=== PATIENT | male | born 1940 | race Caucasian/White ===

== ENCOUNTER → 2019-12-14 14:37 | Outpatient (BNVA) | payer MEDICARE, OTHER, SELFPAY | PROVIDERS: Family Provider Family Medicine; PCP Nurse Practitioner Family; Referring Provider Nurse Practitioner Family; Visit Provider Urology | DX: R31.0 Gross hematuria (principal); N40.0 Benign prostatic hyperplasia without lower urinary tract symptoms; N40.1 Benign prostatic hyperplasia with lower urinary tract symptoms; R97.20 Elevated prostate specific antigen [PSA] | CPT/HCPCS: 81001 ==

== ENCOUNTER 2020-05-14 09:17 | Outpatient (CLI) | payer MEDICARE, OTHER, SELFPAY ==
--- NOTE | 2020-05-14 09:24 | XR_ITS ---
WS: [id number] WRIST LEFT TECHNIQUE: 2 views of the left wrist CLINICAL INFORMATION: INJURY OF LEFT WRIST COMPARISON: None. FINDINGS: Mild narrowing radiocarpal joint. Scaphoid is normal in appearance. No evidence of radiocarpal disloc ation. Distal radius and ulna are normal in appearance. Normal visualized carpal bones. XR/XR wrist LT 2V [id number] IMPRESSION: No visualized fractures.
--- NOTE | 2020-05-14 09:24 | XR_ITS ---
WS: [id number] TECHNIQUE: 2 views of the right hand CLINICAL INFORMATION: INJURY OF LEFT WRIST COMPARISON: None. FINDINGS: Mild narrowing of the radiocarpal joint. Scaphoid and lunate appear normal. Normal scapholunate inter daniel. Metacarpals are normal in appearance. Moderate PIP and DIP joint narrowing with periarticular os teophytes. XR/XR hand RT 2V [id number] IMPRESSION: No acute fractures
== END 2020-05-14 09:18 | disposition home or self-care (01) ==
LOC: RADWPI 09:20
PROVIDERS: PCP Nurse Practitioner Family; Visit Provider Nurse Practitioner Family
DX: S69.92XA Unspecified injury of left wrist, hand and finger(s), initial encounter (principal); X58.XXXA Exposure to other specified factors, initial encounter
CPT/HCPCS: 73100; 73120

== ENCOUNTER → 2020-12-12 10:15 | Outpatient (BNVA) | payer MEDICARE, SELFPAY | PROVIDERS: PCP Nurse Practitioner Family; Visit Provider Urology | DX: R97.20 Elevated prostate specific antigen [PSA] (principal); N40.1 Benign prostatic hyperplasia with lower urinary tract symptoms | CPT/HCPCS: 81003; G0103 ==

== ENCOUNTER → 2022-04-28 08:33 | Outpatient (BNVA) | payer MEDICARE, SELFPAY | PROVIDERS: PCP Nurse Practitioner Family; Visit Provider Podiatrist Foot & Ankle Surgery | DX: Z79.84 Long term (current) use of oral hypoglycemic drugs (principal); E11.42 Type 2 diabetes mellitus with diabetic polyneuropathy; L60.3 Nail dystrophy; M20.41 Other hammer toe(s) (acquired), right foot; M20.42 Other hammer toe(s) (acquired), left foot | CPT/HCPCS: 99214 ==

== ENCOUNTER → 2022-08-25 08:00 | Outpatient (BNVA) | payer MEDICARE, OTHER, SELFPAY | PROVIDERS: PCP Internal Medicine; Visit Provider Podiatrist Foot & Ankle Surgery | DX: E11.42 Type 2 diabetes mellitus with diabetic polyneuropathy (principal); L60.3 Nail dystrophy; M20.41 Other hammer toe(s) (acquired), right foot; M20.42 Other hammer toe(s) (acquired), left foot | CPT/HCPCS: 11721 ==

== ENCOUNTER → 2022-12-01 07:48 | Outpatient (BNVA) | payer MEDICARE, OTHER, SELFPAY | PROVIDERS: PCP Internal Medicine; Visit Provider Podiatrist Foot & Ankle Surgery | DX: E11.42 Type 2 diabetes mellitus with diabetic polyneuropathy (principal); L60.3 Nail dystrophy; M20.41 Other hammer toe(s) (acquired), right foot; M20.42 Other hammer toe(s) (acquired), left foot; Z79.84 Long term (current) use of oral hypoglycemic drugs | CPT/HCPCS: 11721 ==

== ENCOUNTER → 2023-03-02 07:29 | Outpatient (BNVA) | payer MEDICARE, OTHER, SELFPAY | PROVIDERS: PCP Internal Medicine; Visit Provider Podiatrist Foot & Ankle Surgery | DX: E11.42 Type 2 diabetes mellitus with diabetic polyneuropathy (principal); L60.3 Nail dystrophy; M20.41 Other hammer toe(s) (acquired), right foot; M20.42 Other hammer toe(s) (acquired), left foot; Z79.84 Long term (current) use of oral hypoglycemic drugs | CPT/HCPCS: 11721 ==

== ENCOUNTER → 2023-06-30 07:50 | Outpatient (BNVA) | payer MEDICARE, OTHER, SELFPAY | PROVIDERS: PCP Internal Medicine; Visit Provider Podiatrist Foot & Ankle Surgery | DX: E11.42 Type 2 diabetes mellitus with diabetic polyneuropathy (principal); L60.3 Nail dystrophy; Z79.84 Long term (current) use of oral hypoglycemic drugs | CPT/HCPCS: 11721 ==

== ENCOUNTER 2023-07-28 15:17 | Emergency (ER) | payer MEDICARE, OTHER, SELFPAY ==
[2023-07-28] VITALS (8 sets, daily range): BP systolic 163–178; BP diastolic 78–88; PULSE 56–87; RESP 16–24; TEMP 36.7; O2SAT 93–99
--- NOTE | 2023-07-28 15:29 | W.ED.CHESTPA ---
HPI - Chest Pain General: Chief Complaint: Abdominal Pain Stated Complaint: left side pain Time Seen by Provider: 07/28/23 15:29 [facility] ED PFSH: Medical History Elevated PSA BPH NOS w ur obs/LUTS Enlarged prostate Surgical History H/O hernia repair BILATERAL INGUINAL HERNIA H/O circumcision Total knee replacement status LEFT KNEE x 2 H/O knee surgery LEFT Family History Mother , AT AGE 78 Cancer Lung Diabetes Father , AT AGE 85 Diabetes Cancer PANCREAS Social History Smoking and tobacco/nicotine status: never used tobacco/nicotine Alcohol intake: never Substance/Drug Use: never Marital status: Current occupational status: retired Course Vital Signs: Vital signs: Vital Signs Temperature 98.0 F 07/28/23 15:20 Pulse Rate 61 07/28/23 15:20 Respiratory Rate 16 07/28/23 15:20 Blood Pressure 172/78 07/28/23 15:20 Pulse Oximetry 99 07/28/23 15:20 Oxygen Delivery Me thod Room Air 07/28/23 15:20 Discharge Plan Discharge Condition: Stable Prescriptions: No Action (DME) Diabetic shoes with 3 inserts See Rx Instructions .Route .MEDSUPPLY Qty: 1 0RF Rx Instructions: As directed aspirin [Adult Aspirin Regimen] 81 mg tablet,delayed release (DR/EC) 81 mg PO DAILY tamsulosin 0.4 mg capsule 0.4 mg PO DAILY mecobalamin (vitamin B12) 1,000 mcg tablet,chewable 500 mcg PO DAILY cetirizine 10 mg tablet 5 mg PO DAILY PRN finasteride 5 mg tablet 5 mg PO DAILY metformin 500 mg tablet 1,000 mg PO BID lisinopril 2.5 mg tablet 2.5 mg PO BID (DME) Diabetic Shoes with 3 sets of inserts See Rx Instructions .Route .MEDSUPPLY Qty: 1 0RF Rx Instructions: As directed by HOME Ozempic 0.25 mg or 0.5 mg(2 mg/1.5 mL) pen injector 0.25 mg SUBCUT .weekly atorvastatin 40 mg tablet 40 mg PO DAILY Qty: 90 3RF (DME) OneTouch Ultra Test Strip See Rx Instructions .Route Qty: 100 3RF Rx Instructions: Test once a day. azelastine-fluticasone 137-50 mcg/spray spray,non-aerosol 1 spray intranasal BID Qty: 23 0RF Rx Instructions: administer into each nostril (DME) lancets [OneTouch Delica Plus Lancet] 33 gauge misc See Rx Instructions .ROUTE .COMPLEX Qty: 100 4RF Dose Instruction: USE TO TEST ONCE DAILY Rx Instructions: USE TO TEST ONCE DAILY Referrals: Lázaro Mccarty DO [Primary Care Provider] - Coding Level of Care Code ED Show Card Writer for Jackie Janesn
--- NOTE | 2023-07-28 15:36 | ECG_ITS ---
[facility] Test Date: 2023-07-28 Pat Name: Eduin Elena Department: Room: Gender: Male Stenographer Secretary: : 1940 Requested By: Ananda Cagle Order Number: [id number] Leidy MD: Victorino Rico M.D. Measurements Intervals Post Rate: 52 P: 261 NE: 114 QRS: 19 QRSD: 96 T: 36 QT: 399 QTc: 373 Interpretive Statements JUNCTIONAL BRADYCARDIA SEPTAL MYOCARDIAL INFARCTION , AGE INDETERMINATE No previous ECG available for comparison Electronically Signed On 07-29-2023 14:47:09 BEEF SELECTOR by Victorino Rico M.D. [id number]
--- NOTE | 2023-07-28 15:37 | XR_ITS ---
WS: [id number] Portable AP upright chest, 07/28/2023 Clinical Data: dyspnea/cough Comparison: Two-view chest, 09/15/2017 Findings: No nodules, masses or effusions are seen. The heart is normal. The pulmonary vascularity is not increased. No pneumonia or pneumothorax is seen. The aortic arch and descending thoracic aorta a re minimally tortuous. There are monitor leads on the chest wall. Impression: Atherosclerosis.
[2023-07-28 15:49] LABS: Basophils % 0.3 %; Eosinophils # 0.1 10^3/uL (0.0-0.8); Hematocrit 40.8 % (37-53); Lymphocytes # 3.5 10^3/uL (0.8-4.8); Lymphocytes % 40.5 %; Mean Corpuscular HGB Conc 32.6 g/dL (30-55); Mean Corpuscular Hemoglobin 30.7 pg (27-33); Mean Corpuscular Volume 94.2 fl (82-101); Monocytes % 11.9 %; Neutrophils # 3.96 10^3/uL (1.8-7.7); Neutrophils % 46.1 %; Nucleated Red Blood Cells % 0 %; Platelet Count 250 10^3/cmm (157-399); Red Blood Count 4.33 10^6/uL (3.85-5.65); Red Cell Distribution Width 12.6 % (12.1-15.1); White Blood Count 8.62 10^3/uL (3.29-11.43)
--- NOTE | 2023-07-28 15:54 | ED_ITS ---
HPI - Abdominal Pain 2 General: Chief Complaint: Abdominal Pain Stated Complaint: left side pain Time Seen by Provider: 07/28/23 15:29 Source: patient Mode of arrival: ambulatory History of Present Illness: 83-year-old male presents emergency room with complaints of left lower quadrant left flank pain that began earlier today no chest pain or shortness of breath. He denies dysuria urgency frequency or hematuria no vomiting or diarrhea but has been very nauseous. No history of diverticulitis. MD elicited complaint: abdominal pain Onset (ago): hour(s) Pain Consistency: constant Location: LLQ and L flank Severity: moderate Quality: sharp Exacerbating factors: nothing Relieving factors: nothing Associated Symptoms: Reports GI cramping and nausea; Denies anorexia, belching, bloating, change in bowel habits, change in stool character, chills, coffee ground emesis, constipation, diarrhea, dyspepsia, dysuria, excessive flatus, fever(s), heartburn, hematochezia, hematuria, hematemesis, fecal incontinence, loose stools, melena, poor appetite, syncope and vomiting Review of Systems 2 Const: Denies: fever(s) or chills Card: Denies: chest pain or syncope Resp: Denies: dyspnea GI: Reports: abdominal pain, nausea and GI cramping; Denies: vomiting, hematemesis, coffee ground emesis, heartburn, diarrhea, constipation, bloating, belching, excessive flatus, fecal incontinence, change in bowel habits, change in stool character, hematochezia or melena : Reports: flank pain; Denies: dysuria, urinary frequency, urinary urgency or hematuria Musc: Denies: neck pain or back pain Skin/Breast: Denies: rash PFSH ED 2 PFSH: Medical History (Updated 07/28/23 @ 17:28 by Ananda Peralta DO) Elevated PSA BPH NOS w ur obs/LUTS Enlarged prostate Surgical History H/O hernia repair BILATERAL INGUINAL HERNIA H/O circumcision Total knee replacement status LEFT KNEE x 2 H/O knee surgery LEFT Family History Mother , AT AGE 78 Cancer Lung Diabetes Father , AT AGE 85 Diabetes Cancer PANCREAS Social History Smoking and tobacco/nicotine status: never used tobacco/nicotine Alcohol intake: never Substance/Drug Use: never Marital status: Current occupational status: retired Physical Exam 2 Const: GENERAL APPEARANCE: cooperative and comfortable O RIENTATION/CONSCIOUSNESS: Yes awake, Yes oriented to person, Yes oriented to place and Yes oriented to time HENMT: COMMON NORMALS: normocephalic, atraumatic and hearing grossly normal bilaterally HEAD & SCALP: normocephalic and atraumatic Resp: COMMON NORMALS: normal respiratory effort, No retractions, No use of accessory muscles and clear to auscultation bilaterally AUSCULTATION: clear to auscultation bilaterally Cardio: COMMON NORMALS: regular rate, regular rhythm and No murmurs present (Cardio) RATE: regular rate RHYTHM: regular rhythm GI: COMMON NORMALS: No hepatosplenomegaly present AUSCULTATION: Yes normoactive bowel sounds PALPATION: Yes Tenderness to palpation present (GI) Details: LLQ, No Guarding due to palpation present (GI) and Yes No hepatosplenomegaly present Extremity: COMMON NORMALS: normal to inspection, capillary refill normal, no clubbing, cyanosis or edema, no calf tenderness and no pedal edema Neuro: SENSORIUM/ORIENTATION: Yes oriented to person, Yes oriented to place and Yes oriented to time Skin: COMMON NORMALS: no rashes or lesions noted GENERAL SKIN EXAM: no rashes or lesions noted Course 2 Vital Signs: Vital signs: Vital Signs Temperature 98.0 F 07/28/23 15:20 Pulse Rate 78 07/28/23 17:00 Respiratory Rate 18 07/28/23 17:42 Blood Pressure 170/86 07/28/23 17:00 Pulse Oximetry 94 07/28/23 17:42 Oxygen Delivery Me thod Room Air 07/28/23 15:20 MDM - Abdominal Pain Medical Decision Making CT shows left nephrolithiasis at the UVJ. Discharge home strain urine increase tamsulosin 1. Hydrocodone for pain antiemetics as needed. Strain urine and follow-up with urology Medical Records I reviewed the patient's medical records. Lab Data I reviewed the patient's lab results. 07/28/23 15:35 07/28/23 15:35 Labs/Radiology: Radiology Impressions Abdomen/Pelvis CT 07/28/23 16:42 IMPRESSION: 1. 3 mm obstructive stone in the distal left ureter at the ureterovesical junction producing mild hydronephrosis, renal enlargement and perinephric edema. 2. Solitary nonobstructive stone in the left kidney. No stones on the right. 3. Diffuse high attenuation of the liver parenchyma may be related to abnormal iron deposition or amiodarone therapy. 4. Incidental findings above. Laboratory Results WBC 8.62 10^3/uL (3.29-11.43) 07/28/23 15:35 RBC 4.33 10^6/uL (3.85-5.65) 07/28/23 15:35 Hgb 13.30 g/dL (11.27-16.99) 07/28/23 15:35 Hct 40.8 % (37-53) 07/28/23 15:35 MCV 94.2 fl (82-101) 07/28/23 15:35 MCH 30.7 pg (27-33) 07/28/23 15:35 MCHC 32.6 g/dL (30-55) 07/28/23 15:35 RDW 12.6 % (12.1-15.1) 07/28/23 15:35 Plt Count 250 10^3/cmm (157-399) 07/28/23 15:35 MPV 10.0 fL (7.4-10.4) 07/28/23 15:35 Neut % (Auto) 46.1 % 07/28/23 15:35 Lymph % (Auto) 40.5 % 07/28/23 15:35 R[place]els % (Auto) 11.9 % 07/28/23 15:35 Eos % (Auto) 1.0 % 07/28/23 15:35 Baso % (Auto) 0.3 % 07/28/23 15:35 Neut # (Auto) 3.96 10^3/uL (1.8-7.7) 07/28/23 15:35 Lymph # (Auto) 3.5 10^3/uL (0.8-4.8) 07/28/23 15:35 R[place]els # (Auto) 1.0 10^3/uL (0.2-0.9) H 07/28/23 15:35 Eos # (Auto) 0.1 10^3/uL (0.0-0.8) 07/28/23 15:35 Baso # (Auto) 0.0 10^3/uL (0.0-0.1) 07/28/23 15:35 Nucleated RBC % (auto) 0 % 07/28/23 15:35 Nucleated RBCs # 0.0 /100WBC 07/28/23 15:35 Sodium 141 mmol/L (136-145) 07/28/23 15:35 Potassium 3.8 mmol/L (3.5-5.1) 07/28/23 15:35 Chloride 103 mmol/L (98-107) 07/28/23 15:35 Carbon Dioxide 26 mmol/L (22-29) 07/28/23 15:35 Anion Gap 15.8 (5-19) 07/28/23 15:35 BUN 25 mg/dL (8-23) H 07/28/23 15:35 Creatinine 0.8 mg/dL (0.7-1.2) 07/28/23 15:35 GFR Calculation Not Reportable 07/28/23 15:35 Glucose 178 mg/dL (65-115) H 07/28/23 15:35 Calculated Osmolality 301 mOsm/kg (285-295) H 07/28/23 15:35 Calcium 9.7 mg/dL (8.5-10.5) 07/28/23 15:35 Magnesium 1.8 mg/dL (1.7-2.3) 07/28/23 15:35 Total Bilirubin 0.5 mg/dL (0.15-1.2) 07/28/23 15:35 AST 16 U/L (0-40) 07/28/23 15:35 ALT 21 U/L (0-41) 07/28/23 15:35 Alkaline Phosphatase 100 U/L (40-130) 07/28/23 15:35 Troponin T Baseline 16 ng/L (0-15) H 07/28/23 15:35 Total Protein 6.7 g/dL (6.6-8.7) 07/28/23 15:35 Albumin 4.3 g/dL (3.5-5.2) 07/28/23 15:35 Globulin 2.4 g/dL (1.3-4.6) 07/28/23 15:35 Lipase 45 U/L (13-60) 07/28/23 15:35 Urine Color Yellow (Yellow) 07/28/23 15:48 Urine Appearance Clear (CLEAR) 07/28/23 15:48 Urine pH 5 (5-7) 07/28/23 15:48 Ur Specific [place] 1.015 (1.005-1.030) 07/28/23 15:48 Urine Protein Neg (Negative) 07/28/23 15:48 Urine Glucose (UA) 4+ (Normal) H 07/28/23 15:48 Urine Ketones Negative (Negative) 07/28/23 15:48 Urine Blood 3+ (Negative) H 07/28/23 15:48 Urine Nitrate Negative (Negative) 07/28/23 15:48 Urine Bilirubin Neg (Negative) 07/28/23 15:48 Urine Urobilinogen Norm mg/dL (Negative) 07/28/23 15:48 Ur Leukocyte Esterase Negative (Negative) 07/28/23 15:48 Urine RBC 40-50 /hpf (0-2) H 07/28/23 15:48 Urine WBC 0-4 /hpf (0-5) H 07/28/23 15:48 Ur Squamous Epith Cells None /hpf (0-5) 07/28/23 15:48 Ur Transition Epith Cell Rare /hpf 07/28/23 15:48 Amorphous Sediment Not Reportable 07/28/23 15:48 Urine Bacteria None /hpf (NONE) 07/28/23 15:48 Urine Mucus 1+ /hpf 07/28/23 15:48 All radiology interpretation(s) finalized by discharge Discharge Plan Discharge Patient Disposition: Home Clinical Impression: Calculus of kidney Condition: Stable Prescriptions: New hydrocodone-acetaminophen 5-325 mg tablet 1 tab PO Q6H PRN (Reason: pain) Qty: 20 0RF ondansetron HCl 4 mg tablet 4 mg PO Q6H PRN (Reason: nausea and vomiting) Qty: 20 0RF tamsulosin 0.4 mg capsule 0.8 mg PO DAILY Qty: 20 0RF No Action (DME) Diabetic shoes with 3 inserts See Rx Instructions .Route .MEDSUPPLY Qty: 1 0RF Rx Instructions: As directed aspirin [Adult Aspirin Regimen] 81 mg tablet,delayed release (DR/EC) 81 mg PO QAM tamsulosin 0.4 mg capsule 0.4 mg PO QPM mecobalamin (vitamin B12) 1,000 mcg tablet,chewable 500 mcg PO QAM finasteride 5 mg tablet 5 mg PO QPM lisinopril 2.5 mg tablet 2.5 mg PO BID (DME) Diabetic Shoes with 3 sets of inserts See Rx Instructions .Route .MEDSUPPLY Qty: 1 0RF Rx Instructions: As directed by HOME (DME) OneTouch Ultra Test Strip See Rx Instructions .Route Qty: 100 3RF Rx Instructions: Test once a day. (DME) lancets [OneTouch Delica Plus Lancet] 33 gauge misc See Rx Instructions .ROUTE .COMPLEX Qty: 100 4RF Dose Instruction: USE TO TEST ONCE DAILY Rx Instructions: USE TO TEST ONCE DAILY metformin 1,000 mg tablet 1,000 mg PO BID atorvastatin 40 mg tablet 40 mg PO QAM ferrous sulfate 27 mg iron Tablet 27 mg PO QAM Discharge Orders: Discharge ED (Routine); Ordered 07/28/23 Ordered By: Ananda Peralta Referrals: Lázaro Mccarty, [Primary Care Provider] - Discharge Diet: Usual diet Discharge Activity: Resume usual activity Patient Instructions: Kidney Stones (ED), How to Strain Your Urine (ED), Opioid Safety, Pain Management Activity Restrictions/Additional Instructions: Thank you for choosing [facility] for your healthcare needs today. Please realize this is an emergency room and that we are providing you with a medical screening exam and this may not be complete and all inclusive of all the testing and or work up that you may need to determine your ailment or severity of your illness. It is very important that you follow up as instructed or that you return to the Emergency Department should you have concerns or if your condition changes or worsens in any way. Coding Level of Care Code ED Materials Research Engineer for Jackie Jansen
[2023-07-28] MEDS: ondansetron 2 mg/ML SDV 2 mL 4 MG IVP (16:08)
[2023-07-28] MEDS: morphine 4 mg/mL SDV 1 mL IVP (16:08)
--- NOTE | 2023-07-28 16:12 | PC.NURSE ---
pt had morphine listed as allergy, when asked what reaction pt has he stated nausea. pt was educated on allergy and side effect and agreed to take morphine for pain. approved med administration.
[2023-07-28 16:14] LABS: Alanine Aminotransferase 21 U/L (0-41); Albumin Level 4.3 g/dL (3.5-5.2); Alkaline Phosphatase 100 U/L (40-130); Anion Gap 15.8 (5-19); Aspartate Amino Transferase 16 U/L (0-40); Blood Urea Nitrogen 25 mg/dL (8-23); Calcium 9.7 mg/dL (8.5-10.5); Carbon Dioxide 26 mmol/L (22-29); Chloride 103 mmol/L (98-107); Creatinine Clr Calc Pharmacy 77.5006; Globulin 2.4 g/dL (1.3-4.6); Glucose 178 mg/dL (65-115); Lipase 45 U/L (13-60); Magnesium 1.8 mg/dL (1.7-2.3); Osmolality Calculated 301 mOsm/kg (285-295); Potassium 3.8 mmol/L (3.5-5.1); Sodium 141 mmol/L (136-145); Total Bilirubin 0.5 mg/dL (0.15-1.2); Total Protein 6.7 g/dL (6.6-8.7)
[2023-07-28 16:19] LABS: Glucose Urine UA 4+ (Normal); Protein Urine Neg (Negative); Specific Gravity, Urine 1.015 (1.005-1.030); Urine Appearance Clear (CLEAR); Urine Color Yellow (Yellow); pH Urine 5 (5-7)
[2023-07-28 16:19] LABS: Troponin(5th) Baseline 16 ng/L (0-15)
[2023-07-28 16:20] LABS: Add Urine Microscopic? YES; Bilirubin Urine Neg (Negative); Blood Urine 3+ (Negative); Ketones Urine Negative (Negative); Leukocyte Esterase Urine Negative (Negative); Nitrate Urine Negative (Negative); Urobilinogen Urine Norm (Negative)
[2023-07-28 16:23] LABS: Add Urine Culture? Yes; Mucus Urine 1+ /hpf; RBC Urine 40-50 /hpf (0-2); Transitional Epi Cells Urine RARE /hpf; WBC Urine 0-4 /hpf (0-5)
--- NOTE | 2023-07-28 16:42 | CTR_ITS ---
PROCEDURE INFORMATION: Exam: CT Abdomen And Pelvis Without Contrast Exam date and time: 07/28/2023 5:14 PM Age: 83 years old Clinical indication: Abdominal pain; Flank; Left; Prior surgery; Surgery date: 6+ months; Surgery type: Hernia, coreen; Additional info: Flank pain TECHNIQUE: Imaging protocol: Computed tomography of the abdomen and pelvis without contrast. Radiation optimization: All CT scans at this facility use at least one of these dose optimization techniques: automated exposure control; mA and/or kV adjustment per patient size (includes targeted exams where dose is matched to clinical indication); or iterative reconstruction. COMPARISON: CR XR chest 1V portable [id number] 07/28/2023 3:39 PM RADIATION DOSE METRICS: Total DLP (mGy-cm): 493 FINDINGS: Lungs: There is subsegmental atelectasis in the left lung. Diaphragm: There is a small sliding-type hiatal hernia. Liver: There is diffuse high attenuation of the liver parenchyma. No liver mass. Gallbladder and bile ducts: The gallbladder is normal. There is no biliary dilation. Pancreas: The pancreas is unremarkable. Spleen: The spleen is unremarkable. Adrenal glands: The adrenal glands are hypertrophic bilaterally. Kidneys and ureters: There is a 3 mm obstructive stone at the left ureterovesical junction. Mild left hydronephrosis and hydroureter. Solitary 6 mm nonobstructive stone in the lower pole collecting system on the left. Asymmetric left renal enlargement and perinephric fat stranding. The right kidney and ureter are unremarkable. Stomach and bowel: The stomach is nondistended, limiting assessment of wall thickness. The small bowel is nondilated. The colon is mildly stool distended from the cecum to the descending colon. The descending colon contains stool and is nondistended. The sigmoid contains stool and is nondistended. There are a few noninflamed descending and proximal sigmoid diverticula. There is no sign of diverticulitis. Appendix: The appendix is normal. Intraperitoneal space: There is no free air or significant intraperitoneal free fluid. Vasculature: There is moderate aortic atherosclerotic disease. Marked calcific plaque in the right common femoral artery with probable hemodynamically significant stenosis. Lymph nodes: There is no lymphadenopathy in the retroperitoneum, mesentery, pelvis or inguinal regions. Urinary bladder: The urinary bladder is distended and thin walled. Reproductive: There is nonspecific moderate enlargement of the prostate gland. Bones/joints: There is moderate degenerative disease in the lumbar spine. There is mild degenerative disease at the left hip. There is moderate degenerative disease of the right hip. The bony pelvis is intact. Soft tissues: There is a small fat containing umbilical hernia. There is a small fat containing left inguinal hernia. CT/CT kidney stone [id number] IMPRESSION: 1. 3 mm obstructive stone in the distal left ureter at the ureterovesical junction producing mild hydronephrosis, renal enlargement and perinephric edema. 2. Solitary nonobstructive stone in the left kidney. No stones on the right. 3. Diffuse high attenuation of the liver parenchyma may be related to abnormal iron deposition or amiodarone therapy. 4. Incidental findings above.
[2023-07-28] MEDS: morphine 4 mg/mL SDV 1 mL 2 MG IVP (17:42)
[2023-07-28 18:35] LABS: Troponin 5 2HR 16.21 ng/L (0-15); Troponin 5 2HR Delta 0.21 ABS# (0-10)
--- NOTE | 2023-07-29 08:28 | DCPLANNER ---
Addendum entered by Hilda Jensen 07/29/23 08:49: I faxed this patients chart to [facility] on 07/29/23 at 0828. This clinic should contact patient for appt. Fax number sent to is: [phone]. Original Note: I called patient on 07/29/23 at 0824 to ask patient where he would like his urology referral to be sent. He requested [facility] [place].
== END 2023-07-28 18:39 | disposition home or self-care (01) ==
PROVIDERS: Emergency Provider Family Medicine; PCP Electrodiagnostic Medicine
DX: N13.2 Hydronephrosis with renal and ureteral calculous obstruction (principal); Z79.82 Long term (current) use of aspirin; Z79.84 Long term (current) use of oral hypoglycemic drugs
CPT/HCPCS: 36415; 71045; 74176; 80053; 81001; 83690; 83735; 84484; 85025; 87086; 93005; 96374; 96375; 96376; 99285; J2270; J2405

== ENCOUNTER → 2023-09-28 07:56 | Outpatient (BNVA) | payer MEDICARE, OTHER, SELFPAY | PROVIDERS: PCP Electrodiagnostic Medicine; Visit Provider Podiatrist Foot & Ankle Surgery | DX: E11.42 Type 2 diabetes mellitus with diabetic polyneuropathy (principal); L60.3 Nail dystrophy; I73.9 Peripheral vascular disease, unspecified | CPT/HCPCS: 11721 ==

== ENCOUNTER → 2023-12-28 07:55 | Outpatient (BNVA) | payer MEDICARE, OTHER, SELFPAY | PROVIDERS: PCP Electrodiagnostic Medicine; Visit Provider Podiatrist Foot & Ankle Surgery | DX: E11.42 Type 2 diabetes mellitus with diabetic polyneuropathy (principal); L60.3 Nail dystrophy; I73.9 Peripheral vascular disease, unspecified; Z79.84 Long term (current) use of oral hypoglycemic drugs | CPT/HCPCS: 11721 ==

== ENCOUNTER → 2024-04-18 10:30 | Outpatient (BNVA) | payer MEDICARE, OTHER, SELFPAY | PROVIDERS: PCP Electrodiagnostic Medicine; Visit Provider Podiatrist Foot & Ankle Surgery | DX: E11.42 Type 2 diabetes mellitus with diabetic polyneuropathy (principal); L60.3 Nail dystrophy; I73.9 Peripheral vascular disease, unspecified; Z79.84 Long term (current) use of oral hypoglycemic drugs | CPT/HCPCS: 11721 ==

== ENCOUNTER → 2024-07-18 07:01 | Outpatient (BNVA) | payer MEDICARE, OTHER, SELFPAY | PROVIDERS: PCP Electrodiagnostic Medicine; Visit Provider Podiatrist Foot & Ankle Surgery | DX: E11.42 Type 2 diabetes mellitus with diabetic polyneuropathy (principal); L60.3 Nail dystrophy; I73.9 Peripheral vascular disease, unspecified; Z79.84 Long term (current) use of oral hypoglycemic drugs | CPT/HCPCS: 11721; 99213 ==

== ENCOUNTER → 2024-10-24 07:27 | Outpatient (BNVA) | payer MEDICARE, OTHER, SELFPAY | PROVIDERS: PCP Electrodiagnostic Medicine; Visit Provider Podiatrist Foot & Ankle Surgery | DX: E11.42 Type 2 diabetes mellitus with diabetic polyneuropathy (principal); L60.3 Nail dystrophy; I73.9 Peripheral vascular disease, unspecified; Z79.84 Long term (current) use of oral hypoglycemic drugs | CPT/HCPCS: 11721 ==

== ENCOUNTER → 2025-01-23 07:30 | Outpatient (BNVA) | payer MEDICARE, OTHER, SELFPAY | PROVIDERS: PCP Electrodiagnostic Medicine; Visit Provider Podiatrist Foot & Ankle Surgery | DX: E11.42 Type 2 diabetes mellitus with diabetic polyneuropathy (principal); L60.3 Nail dystrophy; E11.8 Type 2 diabetes mellitus with unspecified complications; I73.9 Peripheral vascular disease, unspecified; Z79.84 Long term (current) use of oral hypoglycemic drugs | CPT/HCPCS: 11721 ==

== ENCOUNTER → 2025-04-24 06:57 | Outpatient (BNVA) | payer MEDICARE, OTHER, SELFPAY | PROVIDERS: PCP Electrodiagnostic Medicine; Visit Provider Podiatrist Foot & Ankle Surgery | DX: E11.42 Type 2 diabetes mellitus with diabetic polyneuropathy (principal); L60.3 Nail dystrophy; E11.8 Type 2 diabetes mellitus with unspecified complications; I73.9 Peripheral vascular disease, unspecified; Z79.84 Long term (current) use of oral hypoglycemic drugs | CPT/HCPCS: 11721 ==

== ENCOUNTER 2025-05-22 10:45 | Outpatient (CLI) | payer MEDICARE, OTHER, SELFPAY ==
--- NOTE | 2025-05-22 10:56 | XR_ITS ---
WS: [id number] KUB, AP view, 05/22/2025 Clinical Data: LT NEPHROLITHIASIS Comparison: None. Findings: No abnormal intraabdominal masses or calcifications are seen. There is no dilatated small bowel or evidence of obstruction. There is normal small bowel and scattered loops of large bowel with a moderate amount of fecal material.. XR/XR KUB [id number] Impression: Negative for renal calculi.
== END 2025-05-22 10:46 | disposition home or self-care (01) ==
LOC: RAD 10:52
PROVIDERS: PCP Electrodiagnostic Medicine; Visit Provider Nurse Practitioner Family
DX: N20.0 Calculus of kidney (principal)
CPT/HCPCS: 74018